=== PATIENT | male | born 1950 | race Caucasian/White ===

== ENCOUNTER 2018-08-05 15:13 | Outpatient (CLI) | payer MEDICARE, OTHER, SELFPAY ==
--- NOTE | 2018-08-05 11:09 | DI.COMBO_ITS ---
SYMPTOM/DIAGNOSIS: COUGH, R05 PA AND LATERAL CHEST: The cardiac and mediastinal contours have a normal appearance. The lungs are well inflated and clear. No infiltrate or effusion is seen. There are multiple old left rib fractures. IMPRESSION: No acute abnormality.
== END 2018-08-05 15:33 ==
PROVIDERS: PCP Nurse Practitioner; Visit Provider Nurse Practitioner
DX: R05 Cough (principal)
CPT/HCPCS: 71046

== ENCOUNTER 2018-09-05 10:53 | Outpatient (REF) | payer MEDICARE, OTHER, SELFPAY | END 2018-09-05 11:13 | LOC: LBN 10:53 | PROVIDERS: PCP Nurse Practitioner; Visit Provider Nurse Practitioner | DX: J02.9 Acute pharyngitis, unspecified (principal) | CPT/HCPCS: 87070 ==

== ENCOUNTER 2018-09-05 11:27 | Outpatient (CLI) | payer MEDICARE, OTHER, SELFPAY ==
[2018-09-05 11:47] LABS: Abs Immature Grans 0.02 k/cumm (0.0-0.09); Absolute Basophil Count 0.03 k/cumm (0.0-0.2); Absolute Eosinophil Count 0.29 k/cumm (0.0-0.7); Absolute Lymphocyte Count 1.11 k/cumm (1.2-3.4); Absolute Monocyte Count 0.62 k/cumm (0.11-0.7); Absolute Neutrophil Count 5.57 k/cumm (1.2-6.7); Basophils % 0.4; Eosinophils % 3.8; HCT 44.8 % (40.0-50.0); HGB 14.9 g/dL (13.5-17.5); Immature Grans % 0.3; Lymphocytes % 14.5; Mean Corp. HGB Concentration 33.3 g/dL (32.0-36.0); Mean Corpuscular Hemoglobin 29.9 pg (27.0-33.0); Mean Platelet Volume 8.8 fL (8.0-11.0); Monocytes % 8.1; Neutrophils % 72.9; Platelet Count 241 x1000/uL (130-400); RBC 4.98 m/cumm (4.50-6.00); White Blood Cell Count 7.64 k/cumm (4.4-10.8)
== END 2018-09-05 11:47 ==
PROVIDERS: PCP Nurse Practitioner; Visit Provider Nurse Practitioner
DX: I10 Essential (primary) hypertension (principal); E78.5 Hyperlipidemia, unspecified
CPT/HCPCS: 36415; 80053; 80061; 83721; 85025

== ENCOUNTER 2018-09-12 09:30 | Outpatient (CLI) | payer MEDICARE, OTHER, SELFPAY ==
--- NOTE | 2018-09-12 09:28 | DI.RAD_ITS ---
SYMPTOM/DIAGNOSIS: RIGHT HIP: The patient is status post bilateral THR. Three projections of the right hip demonstrate the prosthesis in excellent position. Surrounding bone intact. No abnormality involving the left hip prosthesis or adjacent bone is seen on a single frontal projection.
== END 2018-09-12 09:50 ==
PROVIDERS: PCP Nurse Practitioner; Visit Provider Orthopaedic Surgery
DX: Z96.643 Presence of artificial hip joint, bilateral (principal); M25.551 Pain in right hip; Z47.1 Aftercare following joint replacement surgery; I10 Essential (primary) hypertension
CPT/HCPCS: 99213; 73502

== ENCOUNTER 2018-11-06 02:12 | Outpatient (CLI) | payer MEDICARE, OTHER, SELFPAY ==
[2018-11-06 10:45] LABS: ALT 34 U/L (12-78); AST 21 U/L (15-37); Alkaline Phosphatase 39 U/L (46-116); Anion Gap 6.8 mmol/L (3-11); BUN 23 mg/dL (7-18); Bilirubin, Total 0.5 mg/dL (0.2-1.0); CO2 29.2 mmol/L (21.0-32.0); CREATININE 0.98 mg/dL (0.70-1.30); Calcium 8.9 mg/dL (8.5-10.1); Chloride 106 mmol/L (98-107); Cholesterol 165 mg/dL (50-200); Glucose 100 mg/dL (70-100); HDL Cholesterol 40 mg/dL (40-60); LDL CHOLESTEROL 104 mg/dL (<100); Potassium 4.3 mmol/L (3.5-5.1); Sodium 142 mmol/L (136-145); Total Protein 6.7 g/dL (6.4-8.2); Triglyceride 96 mg/dL (30-150)
[2018-11-07 10:45] LABS: PSA, Screening 0.7 ng/ml (0-4.5)
== END 2018-11-06 02:32 ==
PROVIDERS: PCP Nurse Practitioner; Visit Provider Nurse Practitioner
DX: I10 Essential (primary) hypertension (principal); Z12.5 Encounter for screening for malignant neoplasm of prostate
CPT/HCPCS: 36415; 80053; 80061; 83721; 84153

== ENCOUNTER 2019-04-14 14:31 | Outpatient (CLI) | payer MEDICARE, OTHER, SELFPAY ==
[2019-04-14 16:39] LABS: TSH (W/Ref FT4) 0.64 uIU/mL (0.358-3.74); Vitamin B12 314 pg/mL (193-986)
[2019-04-15 10:56] LABS: SS-B (La) Ab, IgG 2.1 Units (<20)
== END 2019-04-14 14:51 ==
PROVIDERS: PCP Nurse Practitioner; Visit Provider Otolaryngology Otolaryngology/Facial Plastic Surgery
DX: R43.2 Parageusia (principal); J34.89 Other specified disorders of nose and nasal sinuses; I10 Essential (primary) hypertension
CPT/HCPCS: 36415; 82607; 84443; 86235

== ENCOUNTER → 2019-06-04 08:42 | Outpatient (BNVA) | payer MEDICARE, OTHER, SELFPAY | PROVIDERS: PCP Nurse Practitioner; Referring Provider Nurse Practitioner; Visit Provider Orthopaedic Surgery | DX: M25.521 Pain in right elbow (principal); Z87.39 Personal history of other diseases of the musculoskeletal system and connective tissue | CPT/HCPCS: 99213; 99214 ==

== ENCOUNTER 2019-08-22 08:05 | Outpatient (CLI) | payer MEDICARE, OTHER, SELFPAY ==
[2019-08-22 08:42] LABS: HCT 45.1 % (40.0-50.0); HGB 15.1 g/dL (13.5-17.5); Mean Corp. HGB Concentration 33.5 g/dL (32.0-36.0); Mean Corpuscular Hemoglobin 30.8 pg (27.0-33.0); Mean Corpuscular Volume 91.9 fL (80-95); Platelet Count 240 x1000/uL (130-400); RBC 4.91 m/cumm (4.50-6.00); RBC Distribution Width 14.1 % (11.8-14.1); White Blood Cell Count 7.38 k/cumm (4.4-10.8)
[2019-08-22 09:12] LABS: Hemoglobin A1C 5.2 % (4.5-6.2)
[2019-08-22 09:59] LABS: ALT 35 U/L (16-63); AST 13 U/L (15-37); Alkaline Phosphatase 41 U/L (46-116); Anion Gap 8.3 mmol/L (3-11); BUN 27 mg/dL (7-18); Bilirubin, Total 0.7 mg/dL (0.2-1.0); CO2 26.7 mmol/L (21.0-32.0); CREATININE 0.93 mg/dL (0.70-1.30); Calcium 8.8 mg/dL (8.5-10.1); Calculated LDL 102 mg/dL; Chloride 107 mmol/L (98-107); Cholesterol 157 mg/dL (50-200); Glucose 97 mg/dL (70-100); HDL Cholesterol 44 mg/dL (40-60); Potassium 4.1 mmol/L (3.5-5.1); Sodium 142 mmol/L (136-145); TSH (W/Ref FT4) 0.57 uIU/mL (0.36-3.74); Total Protein 6.8 g/dL (6.4-8.2); Triglyceride 57 mg/dL (30-150)
== END 2019-08-22 08:25 ==
PROVIDERS: PCP Nurse Practitioner; Visit Provider Nurse Practitioner
DX: E78.00 Pure hypercholesterolemia, unspecified (principal); I10 Essential (primary) hypertension; R63.4 Abnormal weight loss; E11.9 Type 2 diabetes mellitus without complications; Z83.3 Family history of diabetes mellitus
CPT/HCPCS: 36415; 80053; 80061; 85027; 83036; 84443

== ENCOUNTER 2019-09-17 10:29 | Outpatient (CLI) | payer MEDICARE, OTHER, SELFPAY ==
--- NOTE | 2019-09-17 09:42 | DI.RAD_ITS ---
EXAM: XR LUMBAR SPINE AP, LAT INDICATION: pain. COMPARISON: No exams were available for comparison TECHNIQUE: 2D digital imaging was performed. FINDINGS: A moderate levorotoscoliotic deformity and narrowed vacuum discs are identified at L2-3, L3-4 and L5- S1. There is discogenic sclerosis and hypertrophic spurring. The pedicle, spinous and transverse pro cesses appear intact. Facet joint DJD is demonstrated. There is no evidence of spondylolysis or spo ndylolisthesis. The sacrum and sacroiliac joints are intact. Incidental note is made of bilateral h ip prostheses. IMPRESSION: Degenerative changes involving a dextrorotoscoliotic lumbar spine are demonstrated as described bethany field
--- NOTE | 2019-09-17 09:42 | DI.RAD_ITS ---
EXAM: XR THORACOLUMB JUNCT 2V INDICATION: pain. COMPARISON: XR LUMBAR SPINE AP, LAT from 09/17/2019 TECHNIQUE: 2D digital imaging was performed. FINDINGS: Images of the dorsolumbar junction were obtained. There is a mild lower dorsal levorotoscoliosis. M ultilevel disc space narrowing is identified in the mid and lower dorsal spine and there are moderate hypertrophic bony changes. There is no evidence of an abnormality involving the posterior elements with nothing to suggest a fracture or subluxation. IMPRESSION: There are degenerative changes involving the mid and lower dorsal spine and dorsolumbar junction as described above.
== END 2019-09-17 10:49 ==
PROVIDERS: PCP Nurse Practitioner; Visit Provider Orthopaedic Surgery
DX: M54.5 Low back pain (principal); M47.815 Spondylosis without myelopathy or radiculopathy, thoracolumbar region; M54.6 Pain in thoracic spine
CPT/HCPCS: 99214; 72080; 72100

== ENCOUNTER 2019-10-08 07:21 | Outpatient (CLI) | payer MEDICARE, OTHER, SELFPAY ==
--- NOTE | 2019-10-08 13:18 | DI.CT_ITS ---
EXAM: CT THORACIC SPINE WO CLINICAL HISTORY: Back pain, DORSALGIA, M54.9 TECHNIQUE: WO CONTRAST COMPARISON: XR CHEST 2V PA LATERAL from 08/05/2018 FINDINGS: No acute fracture or subluxation in the thoracic spine is present. Moderate degenerative changes are present throughout the thoracic spine. No significant central spinal canal stenosis is present. No suspicious lytic or sclerotic lesions are seen in the bones. There is a 4.9 centimeter hypodense lesion in the superior pole of the left kidney, likely reflecting a cyst. There is a 1.5 centimeter exophytic hypodense lesion at the anterior aspect of the midpole of the left kidney, which may also represent a cyst. These may be further evaluated with a renal ult rasound. IMPRESSION: 1. No acute abnormality in the thoracic spine. 2. Degenerative changes of the thoracic spine. 3. Left renal lesions. These likely reflects cysts. Correlation with renal ultrasound is recommende melissa
== END 2019-10-08 07:41 ==
PROVIDERS: PCP Nurse Practitioner; Visit Provider Nurse Practitioner
DX: M54.6 Pain in thoracic spine (principal); M47.814 Spondylosis without myelopathy or radiculopathy, thoracic region; N28.89 Other specified disorders of kidney and ureter
CPT/HCPCS: 72128

== ENCOUNTER 2019-10-10 01:21 | Outpatient (CLI) | payer MEDICARE, OTHER, SELFPAY ==
--- NOTE | 2019-10-10 15:08 | DI.US_ITS ---
EXAM: US RENAL CLINICAL HISTORY: ? cyst renal on CT, R93.89 ABNORMAL FINDINGS TECHNIQUE: Ultrasound performed using standard protocol. COMPARISON: CT THORACIC SPINE WO from 10/08/2019 FINDINGS: Right kidney measures 11.0 cm in length. The left kidney measures 12.0 cm in length. There is parag l parenchymal thickness and echogenicity. No renal calculi or hydronephrosis is seen. There is a cy st at the upper pole of the left kidney measuring 4.7 cm in greatest dimension. The smaller cyst see n anteriorly on the left kidney in the midportion was not identified by ultrasound. It has the typica l appearance of a simple cyst by CT. The prevoid bladder volume measured 278 cc. There is an 8 cc p ostvoid residual. Both ureteral jets were visualized. No bladder masses or calcifications are seen. The prostate is enlarged with a volume of 110 cc. IMPRESSION: 4.7 centimeter simple-appearing cyst at the upper pole of the left kidney. Enlarged prostate.
== END 2019-10-10 01:41 ==
PROVIDERS: PCP Nurse Practitioner; Visit Provider Nurse Practitioner
DX: N28.1 Cyst of kidney, acquired (principal); N40.0 Benign prostatic hyperplasia without lower urinary tract symptoms; R93.89 Abnormal findings on diagnostic imaging of other specified body structures
CPT/HCPCS: 76770

== ENCOUNTER 2019-11-07 12:18 | Outpatient (CLI) | payer MEDICARE, OTHER, SELFPAY ==
[2019-11-10 09:48] LABS: PSA, Screening 0.8 ng/mL (0.0-4.5)
== END 2019-11-07 12:38 ==
PROVIDERS: PCP Nurse Practitioner; Visit Provider Nurse Practitioner
DX: N40.0 Benign prostatic hyperplasia without lower urinary tract symptoms (principal); Z12.5 Encounter for screening for malignant neoplasm of prostate
CPT/HCPCS: 36415; 84153

== ENCOUNTER 2019-12-18 11:54 | Outpatient (REF) | payer MEDICARE, OTHER, SELFPAY ==
[2019-12-23 15:38] LABS: Misc Referral (MAYO) See Comments
== END 2019-12-18 12:14 ==
LOC: LBO 11:54
PROVIDERS: PCP Nurse Practitioner; Visit Provider Internal Medicine
DX: G60.9 Hereditary and idiopathic neuropathy, unspecified (principal)
CPT/HCPCS: 82175; 82300; 83655; 83825; 81050

== ENCOUNTER 2020-06-11 13:09 | Outpatient (CLI) | payer MEDICARE, OTHER, SELFPAY ==
--- NOTE | 2020-06-11 14:27 | DI.RAD_ITS ---
EXAM: XR FOOT RT LIMITED CLINICAL HISTORY: FOOT PAIN, ? METATARSALGIA TECHNIQUE: COMPARISON: No exams were available for comparison FINDINGS: Two views were obtained. There are mild degenerative changes involving the joints of the midfoot and the IP joints. Minimal osteophyte formation noted on the calcaneus at the plantar fascia and Achill es attachments. IMPRESSION: Mild degenerative changes as described above.
--- NOTE | 2020-06-11 14:30 | DI.RAD_ITS ---
EXAM: XR FOOT LT LIMITED CLINICAL HISTORY: FOOT PAIN, ? METATARSALGIA TECHNIQUE: COMPARISON: CR XR FOOT RT LIMITED from 06/11/2020 FINDINGS: Two views were obtained. There are mild degenerative changes of the IP joints and of the joints of t he midfoot. There are severe degenerative changes at the tibiotalar joint with very prominent hypert rophic changes noted. Moderate sub talar arthritis also noted. IMPRESSION: Degenerative changes as described above, most marked involving tibiotalar joint.
== END 2020-06-11 13:29 ==
PROVIDERS: PCP Nurse Practitioner; Visit Provider Internal Medicine
DX: M19.071 Primary osteoarthritis, right ankle and foot (principal); M19.072 Primary osteoarthritis, left ankle and foot; M25.774 Osteophyte, right foot
CPT/HCPCS: 73620

== ENCOUNTER 2020-07-08 01:01 | Outpatient (CLI) | payer MEDICARE, OTHER, SELFPAY ==
--- NOTE | 2020-07-08 | DI.MRI_ITS ---
EXAM: MR LOWER EXTREMITY RT WO/W CLINICAL HISTORY: RT FOOT PAIN,M79.671, ARTHRITIS. TECHNIQUE: Multiplanar multisequence MRI was performed. COMPARISON: CR XR FOOT RT LIMITED from 06/11/2020 FINDINGS: Bones: No evidence of fracture or contusion. Marrow signal is within normal limits. Joints: Mild degenerative changes are seen at the articulation between the sesamoids and the head of the 1st metatarsal. Muscles: Unremarkable. Tendons and ligaments: Unremarkable. Enhancement: No suspicious enhancement is identified. Soft tissues: No soft tissue mass or focal fluid collection is identified. IMPRESSION: 1. No evidence of a soft tissue mass or enhancing lesion. 2. No evidence of an occult fracture or osteomyelitis. DATA REPOSITORY:
[2020-07-08 14:00] LABS: CREATININE 0.93 mg/dL (0.70-1.30)
[2020-07-08] MEDS: Normal Saline Flush 10 ML SYR IVP (14:03)
[2020-07-08] MEDS: Gadoterate meglumine 20 ML VIAL 18 ML IVP (14:04)
== END 2020-07-08 01:21 ==
PROVIDERS: PCP Nurse Practitioner; Visit Provider Internal Medicine
DX: M79.671 Pain in right foot (principal)
CPT/HCPCS: 80053; 80061; 73720; 82565

== ENCOUNTER 2020-11-04 05:09 | Outpatient (CLI) | payer MEDICARE, SELFPAY ==
[2020-11-04 09:34] LABS: Hemoglobin A1C 5.1 % (<5.7)
[2020-11-04 10:29] LABS: ALT 41 U/L (16-63); AST 24 U/L (15-37); Alkaline Phosphatase 38 U/L (46-116); Anion Gap 10.3 mmol/L (3-11); BUN 25 mg/dL (7-18); Bilirubin, Total 0.5 mg/dL (0.2-1.0); CO2 25.7 mmol/L (21.0-32.0); CREATININE 1.06 mg/dL (0.70-1.30); Calcium 8.8 mg/dL (8.5-10.1); Calculated LDL 102 mg/dL (<100); Chloride 106 mmol/L (98-107); Cholesterol 155 mg/dL (<200); Glucose 95 mg/dL (74-106); HDL Cholesterol 36 mg/dL (40-60); Potassium 4.3 mmol/L (3.5-5.1); Sodium 142 mmol/L (136-145); Total Protein 6.9 g/dL (6.4-8.2); Triglyceride 86 mg/dL (<150)
== END 2020-11-04 05:29 ==
PROVIDERS: PCP Nurse Practitioner; Visit Provider Nurse Practitioner
DX: E78.00 Pure hypercholesterolemia, unspecified (principal); I10 Essential (primary) hypertension; E11.9 Type 2 diabetes mellitus without complications
CPT/HCPCS: 36415; 80053; 80061; 83036

== ENCOUNTER 2020-11-16 02:02 | Outpatient (CLI) | payer MEDICARE, SELFPAY ==
[2020-11-16 22:00] LABS: PSA, Screening 0.7 ng/mL (0.0-6.5)
== END 2020-11-16 02:22 ==
PROVIDERS: PCP Nurse Practitioner; Visit Provider Nurse Practitioner
DX: N40.0 Benign prostatic hyperplasia without lower urinary tract symptoms (principal); Z12.5 Encounter for screening for malignant neoplasm of prostate
CPT/HCPCS: 36415; 84153

== ENCOUNTER 2021-01-19 01:06 | Outpatient (CLI) | payer MEDICARE, SELFPAY ==
--- NOTE | 2021-01-19 09:35 | DI.MRI_ITS ---
EXAM: MR LUMBAR SPINE WO CLINICAL HISTORY: CHRONIC LUMBAR RADICULOPATHY,M54.16. TECHNIQUE: Multiplanar multisequence MRI of the Lumbar spine was performed. COMPARISON: CR XR THORACOLUMB JUNCT 2V from 09/17/2019 CR XR LUMBAR SPINE AP, LAT from 09/17/2019 FINDINGS: Plain films 09/17/2019 reveal what appears to be partial sacralization of the L5 segment and there is degenerative scoliosis convex right having epicenter at L2 and L3 levels. There also bilateral hip prostheses noted. MRI findings: Incidentally noted is a partially included probable cyst in the left kidney. Conus medullaris is at normal level. There is no evidence of conus mass nor subjacent clumping of in trathecal nerve roots to suggest arachnoiditis. The distal thecal sac appears unremarkable.There is no evidence of Tarlov intrasacral cysts nor other significant findings within the sacral canal Bones:There are no fractures nor ominous osseous lesions in the lumbar vertebral bodies and visualize d sacrum. With respect to the individual levels... T12-L1: Disc space narrowing. No significant disc herniation. Central canal dimensions within parag l limits. No tight foraminal stenosis L1-2: Normal disc height and signal. Mild annular bulging without a prominent disc herniation. Centr al canal dimensions are within normal limits.No foraminal stenosis. Mild facet arthropathy. L2-3: There is advanced disc space narrowing which is most prominent on the left side of this disc sp penny where there are also bridging osteophytes between the L 2 and L3 vertebral bodies. Posteriorly t here is some annular bulging and posterior osteophytic ridging. Mild central spinal canal stenosis.T here is severe left-sided foraminal stenosis due to the disc height loss and degenerative change in f acet joint. On the right side of this disc space there is no significant foraminal stenosis due to t he more prominent disc height. There are Modic type 1 sub endplate marrow edema changes at this leve l. L3-4: This level also exhibits advanced disc height loss, also more severe on the left side where the re are Modic type 2 sub endplate fatty marrow changes and left-sided osteophytes also evident at this level. There is annular bulging at this level with a superimposed posterolateral right disc protrusion which extends posteriorly 4 millimeters and extends into the floor of the exiting right neural foramen wit h mild foraminal stenosis. There is severe central spinal canal stenosis due to the annular bulging and short AP dimensions of the pedicles and degenerative facet arthropathy. The there is also severe narrowing of the exiting left neural foramen due to the advanced disc height loss and degenerative c hanges in the facet joints. L4-5: There is disc space narrowing at this level which is more prominent on the right side and there lateral right-sided osteophytes at this level evident. There is diffuse mild annular bulging withou t a dominant disc herniation. Central canal dimensions are lower normal. There is, however, severe foraminal stenosis on the right side, this vertical foraminal stenosis related to the advanced disc h eight loss on the right side at this level as well as to generative changes in the ipsilateral facet joint. There is minimal foraminal stenosis on the opposite-left side, this because of the preserved disc height on the left side of this disc space. L5-S1: There is anterolisthesis of L5 upon S1 at this level which results in increased AP dimension o f the central canal and appears to be related to pars interarticularis defects bilaterally at this le bony. There is approximately 1 cm anterior slippage of L5 upon S1. There is significant bilateral fo raminal stenosis, slightly more so on the right side. The exiting nerve root is impinged between the overlying right pedicle of L5 and subjacent pseudo herniation of the annulus. Lesser amount of left -sided foraminal stenosis is noted because of less disc height loss on the left side of this disc spa ce. There are only mild degenerative changes in the facet joints at this level. Soft tissues: There is atrophy of the right psoas muscle. There is no atrophy of the left psoas mus dasia. However, there is artifact in left side of the pelvis noted at the level of the iliac bone. IMPRESSION: 1. Multilevel advanced chronic degenerative disc disease and degenerative scoliosis. Findings as moon cribed for individual level above. 2. There is severe multilevel asymmetric vertical foraminal stenosis as described above. The asymmet ry in foraminal stenosis is related to the difference in height loss of the disc space on the right a nd left sides of each disc space. 3. There is severe central spinal canal stenosis evident at L3-4 level as described. 4. There are pars defects at L5 level with anterolisthesis of L5 upon S1. Carries a lateral recesse s forward and there is resultant foraminal stenosis, more prominent on the right side, as described a juan jose. This is also related to the differential height loss of the disc space left versus right at th is level. 5. There are Modic type 1 marrow edema changes evident at L2-3 level and Modic type 2 sub endplate f atty marrow changes at L3-4 level and L4-5 level. 6. There is advanced unilateral atrophy of the right psoas muscle. Incidentally noted is a mass in the superior aspect of the left kidney which is partially included in the field of view here and is p robably a cyst. This should be verified with ultrasound. DATA REPOSITORY:
== END 2021-01-19 01:07 ==
LOC: DI 01:07
PROVIDERS: PCP Nurse Practitioner; Visit Provider Internal Medicine
DX: M54.16 Radiculopathy, lumbar region (principal); M51.17 Intervertebral disc disorders with radiculopathy, lumbosacral region
CPT/HCPCS: 72148

== ENCOUNTER → 2021-02-07 14:01 | Outpatient (BNVA) | payer MEDICARE, SELFPAY | PROVIDERS: PCP Nurse Practitioner; Referring Provider Nurse Practitioner; Visit Provider Student in an Organized Health Care Education/Training Program | DX: G56.01 Carpal tunnel syndrome, right upper limb (principal); G56.02 Carpal tunnel syndrome, left upper limb | CPT/HCPCS: 99213 ==

== ENCOUNTER 2021-03-28 02:11 | Outpatient (CLI) | payer MEDICARE, SELFPAY ==
[2021-03-28 12:00] LABS: Source Nasal/Nares
[2021-03-28 19:27] LABS: COVID-19 PCR Negative (Negative)
== END 2021-03-28 02:12 | disposition home or self-care (01) ==
LOC: LBO 02:11
PROVIDERS: PCP Nurse Practitioner; Visit Provider Student in an Organized Health Care Education/Training Program
DX: Z20.822 Contact with and (suspected) exposure to COVID-19 (principal); Z01.818 Encounter for other preprocedural examination
CPT/HCPCS: 87635

== ENCOUNTER 2021-03-29 08:03 | Day surgery (SDC) | payer MEDICARE, SELFPAY ==
--- NOTE | 2021-03-29 07:40 | PDOC.DSDIS_ITS ---
Discharge Plan Disposition Patient Disposition: HOME Condition: Good Discharge Details Attending Provider: Juan Pablo Wilkins Primary Care Provider: Shoshana Randolph Home Meds and New Rx's Prescriptions: New hydrocodone-acetaminophen 5-325 mg tablet 1 tab PO Q6H PRNQty: 5 RF: 0 acetaminophen [Tylenol Extra Strength] 500 mg tablet 500 mg PO Q6H PRNQty: 90 RF: 0 Continued acetaminophen 650 mg tablet extended release 1,300 mg PO BID PRNRF: 0 atorvastatin [Lipitor] 10 mg tablet 10 mg PO DAILY Qty: 90 RF: 3 losartan 50 mg tablet 50 mg PO DAILY Qty: 90 RF: 3 calcium carbonate [Antacid (calcium carbonate)] 200 MG tablet,chewable 200 mg PO DAILY RF: 0 gabapentin 300 mg capsule 100 mg PO QHS RF: 0 ibuprofen 800 mg tablet 800 mg PO TID PRN (Reason: pain) Qty: 90 RF: 3 Discharge Instructions Stand Alone Forms: Franky Boyd Tunnel Release Referrals: Juan Pablo Wilkins MD [ [facility] STAFF PHYSICIAN] - Activity:: Activity as Tolerated Remove Dressings/Wound Care:: 72 hours Shower/Bathe:: 72 hours Diet:: As Tolerated Discharge Orders Discharge Orders: Discharge Order (Routine); Ordered 03/29/21 Ordered By: Mena Chau DS: Diagnosis Discharge Diagnosis (1) Left carpal tunnel syndrome: Status: Acute (2) Right carpal tunnel syndrome: Status: Acute
[2021-03-29 08:10] VITALS: BP 149/86; PULSE 65; RESP 16; TEMP 36; O2SAT 98
--- NOTE | 2021-03-29 08:29 | W.ANESPRE ---
General Info Date of Service Date Performed: 03/29/21 Height: 5 ft 5 in Weight: 88.904 kg Body Mass Index (BMI): 32.5 Surgical Procedure: Operation Date: 03/29/21 09:55 Proposed Procedures Side Surgeon p Wrist ECTR Bilateral Juan Pablo Wilkins MD Meds Allergies and Home Medications Allergies Allergy/AdvReac Type Severity Reaction Status Date / Time benzoin Allergy Intermediate itchy, Verified 03/29/21 08:17 scratchy, redness that stayed Home Medication Medication Instructions Recorded calcium carbonate [Antacid 200 mg PO DAILY tab.chew 10/25/17 (calcium carbonate)] acetaminophen 650 mg 1,300 mg PO BID PRN tab 11/08/20 tablet,extended release atorvastatin 10 mg tablet 10 mg PO DAILY #90 tab-cap 11/08/20 losartan 50 mg tablet 50 mg PO DAILY #90 tab-cap 11/08/20 gabapentin 300 mg capsule 100 mg PO QHS cap 02/07/21 ibuprofen 800 mg tablet 800 mg PO TID PRN #90 tab-cap 03/24/21 acetaminophen [Tylenol Extra 500 mg PO Q6H PRN #90 tab 03/29/21 Strength] hydrocodone-acetaminophen 1 tab PO Q6H PRN #5 tab 03/29/21 Current Visit Medications: Current Medications Generic Name Dose Route Start Last Admin Trade Name Freq PRN Reason Stop Dose Admin Acetaminophen 650 mg 03/29/21 07:39 Acetaminophen 325 Mg Tab PO Q4H PRN PRN Hydrocodone Bitart/Acetaminophen 0 tab 03/29/21 07:39 Hydrocodone 5/Acetaminophen 325 Tab PO Q3H PRN PRN Pain Ringer's Solution 1,000 mls @ 80 mls/hr 03/29/21 06:00 IV 04/27/21 23:59 INFUSION SANDOR Cefazolin Sodium/Dextrose 2 gm in 50 mls @ 100 mls/hr 03/29/21 06:00 Ancef Duplex IVPB 03/29/21 23:59 PREOP SANDOR Ondansetron HCl 4 mg/ Sodium 52 mls @ 200 mls/hr 03/29/21 07:39 Chloride IVPB Q6H PRN PRN IV Miscellaneous Supplies 1 each 03/29/21 06:00 Iv Access IV 04/27/21 23:59 DIRECTED SANDOR Sodium Chloride 0 ml 03/29/21 06:00 Normal Saline Flush 10 Ml Syr IV 04/27/21 23:59 PRN PRN Sodium Chloride 0 ml 03/29/21 06:00 Normal Saline 10 Ml Vial IJ 04/27/21 23:59 DIRECTED PRN Sterile Water 0 ml 03/29/21 06:00 Water,Injection,Sterile 10 Ml Vial IJ 04/27/21 23:59 DIRECTED PRN PFSH Active Problems Active Problems: Problem Status Onset Code Spinal stenosis M48.00 DDD (degenerative disc disease) Lumbar radiculopathy M54.16 Left carpal tunnel syndrome G56.02 Right carpal tunnel syndrome G56.01 Parageusia R43.2 BPH (benign prostatic hyperplasia) N40.0 Urinary hesitancy R39.11 History of fracture Z87.81 Elevated glucose R73.09 Polyneuropathy G62.9 Medicare annual wellness visit, subsequent Z00.00 Back pain M54.9 Hand pain M79.643 Right sided sciatica M54.31 Loss of taste R43.2 Elevated cholesterol E78.00 History of right lateral epicondylitis Z87.39 Post-nasal drip R09.82 H/O total hip arthroplasty 07/30/13 Z96.649 Tubular adenoma 10/25/15 D36.9 Tear of left rotator cuff 08/31/15 M75.102 Spinal stenosis, unspecified region other than cervical 10/25/15 M48.00 Hypertension 05/03/15 I10 Carpal tunnel syndrome 01/21/14 G56.00 Medical History Medical History Back pain Benign hypertension pt is not on medication, and stated may speak with primary care concerning this.HE BPH (benign prostatic hyperplasia) Chest pressure (10/30/14) negative stress test 09/2014 Elevated cholesterol Impingement syndrome of right shoulder repaired 08/15/20-Dr Man Loss of taste Spontaneous rupture of extensor tendons, right shoulder Subacromial impingement of right shoulder Tongue pain 10/07/18 ENT (Alec Luna PA-C) Unspecified rotator cuff tear or rupture of right shoulder, not specified as traumatic repair 08/15/20-Dr Man Surgical History Surgical History Arthrotomy (08/22/06) left ankle with excision of osteophytes (debridement of ankle joint) colonoscopy 2004,07/02/09, 08/09/10, 10/31/13, 12/19/16 diverticulitis resection (04/05/06) Excision, of Osteophytes (03/18/01) from the anterior distal tibia and from the talus left ankle. Hx of shoulder surgery (08/15/20) Rotator Cuff Repair, FELIX-Dr Man 11/23/[address] Man, with f/u in 6w - R roatator cuff syndrome Rotator Cuff Repair (09/27/15) Left Total hip (07/01/07) Right Total replacement of hip (08/24/08) left Tobacco Smoking/Tobacco Use Status: Former Tobacco Use Alcohol Alcohol Intake: current Alcohol intake frequency: a few times a week Alcohol type: beer and wine Substance Use Substance use: Never Substance use type: does not use Vital Signs and Lab Results Vital Signs Most Recent Vital Signs in EMR: Most Recent Vital Signs Temp Pulse Resp BP Pulse Ox 36 C L 65 16 149/86 H 98 03/29/21 08:10 03/29/21 08:10 03/29/21 08:10 03/29/21 08:10 03/29/21 08:10 Lab Results Blood Type / Crossmatch: No Data to Display Complete Blood Count: White Blood Count 7.38 k/cumm (4.4-10.8) 08/22/19 08:20 08/22/19 Red Blood Count 4.91 m/cumm (4.50-6.00) 08/22/19 08:20 08/22/19 Hemoglobin 15.1 g/dL (13.5-17.5) 08/22/19 08:20 08/22/19 Hematocrit 45.1 % (40.0-50.0) 08/22/19 08:20 08/22/19 Platelet Count 240 x1000/uL (130-400) 08/22/19 08:20 08/22/19 Complete Metabolic Panel: Sodium Level 142 mmol/L (136-145) 11/04/20 09:07 11/04/20 Potassium Level 4.3 mmol/L (3.5-5.1) 11/04/20 09:07 11/04/20 Chloride Level 106 mmol/L (98-107) 11/04/20 09:07 11/04/20 Carbon Dioxide Level 25.7 mmol/L (21.0-32.0) 11/04/20 09:07 11/04/20 Blood Urea Nitrogen 25 mg/dL (7-18) H 11/04/20 09:07 11/04/20 Creatinine 1.06 mg/dL (0.70-1.30) 11/04/20 09:07 11/04/20 Calcium Level 8.8 mg/dL (8.5-10.1) 11/04/20 09:07 11/04/20 Albumin 4.0 g/dL (3.4-5.0) 11/04/20 09:07 11/04/20 Glucose Level 95 mg/dL (74-106) 11/04/20 09:07 11/04/20 Hemoglobin A1c 5.1 % (<5.7) 11/04/20 09:07 11/04/20 Liver Function Panel: Alanine Aminotransferase (ALT/SGPT) 41 U/L (16-63) 11/04/20 09:07 11/04/20 Aspartate Amino Transf (AST/SGOT) 24 U/L (15-37) 11/04/20 09:07 11/04/20 Coagulation Panel: No Data to Display Cardiac Panel: No Data to Display Arterial Blood Gas: No Data to Display Venous Blood Gas: No Data to Display Pancreas Panel: No Data to Display Thyroid Panel: Thyroid Stimulating Hormone (TSH) 0.57 uIU/mL (0.36-3.74) 08/22/19 08:20 08/22/19 Infectious Disease: Coronavirus (COVID-19)(PCR) Negative (Negative) 03/28/21 11:14 03/28/21 Coronavirus 2019 Source Nasal/nares 03/28/21 11:14 03/28/21 Blood Cultures: No Data to Display Toxicology Panel: No Data to Display Imaging and Studies Imaging and Studies EKG Summary:: 08/10/20: Sinus rhythm...normal P axis, V-rate 60- 99 Anesthesia Assessment and Plan Anesthesia History Personal History: No History of Anesthesia Complications Family History: No Family History of Anesthesia Complications Exercise Tolerance Exercise Tolerance: Metabolic Equivalents<4 Pertinent Negatives Pertinent Negatives: No Symptoms of GERD, No Major Cardiovascular Symptoms or Complaints, No Major Pulmonary Symptoms or Complaints (Snores) and No History of CVA/TIA Cardiac & Pulmonary Exam Cardiac Exam: Normal S1/S2 Heart Sounds Pulmonary Exam: Clear Bilateral Breath Sounds Airway Exam Known Difficult Airway: No Mallampati Class: 1 Mouth Opening: Normal (> 3cm) Thyromental Distance: Greater than 3 cm Neck Range of Motion: Full ROM Neck Circumference: Normal Teeth Condition: Loose or Chipped Tooth Numberin. Chipped ASA Classification ASA Score: ASA 2 ASA Emergency: No NPO Status NPO Status: NPO Clears >2 hours, Solids >8 hours Anesthesia Plan Anesthesia Technique: General Anesthesia Airway Planned: Natural Airway Monitors Used: Standard Monitors
[2021-03-29] MEDS: Lactated Ringers 1,000 ML 80 ML IV (08:42)
[2021-03-29 09:05] VITALS: BMI 32.5
[2021-03-29] MEDS: ceFAZolin 2 GM/50 ML BAG IVPB (09:24)
[2021-03-29] MEDS: Sodium Bicarbonate 50 MEQ/50 ML VIAL (09:35)
[2021-03-29 09:57] VITALS: BP 113/61; PULSE 66; RESP 18; TEMP 36.2; O2SAT 95
--- NOTE | 2021-03-29 09:59 | W.ANESPOSTOP ---
Postoperative Evaluation Date, Time and Location Date Performed: 03/29/21 Time Performed: 09:59 Patient Location: Day Surgery Unit Vital Signs Most Recent Imported Vital Signs: Most Recent Vital Signs Temp Pulse Resp BP Pulse Ox 36 C L 65 16 149/86 H 98 03/29/21 08:10 03/29/21 08:10 03/29/21 08:10 03/29/21 08:10 03/29/21 08:10 Most Recent Manually Entered Vital Signs: Adult Blood Pressure: 113/61 Heart Rate: 60 Respirations: 16 Oxygen Saturation (%): 95 Temperature (C): 36.2 C Pain Score (0-10 Scale): 0 Assessment Mental Status: Awake (Alert & Oriented to Patient Baseline) Airway and Respiratory Function: Patent airway with normal (patient baseline) respiratory exam Cardiovascular Function: Hemodynamically Stable Hydration Status: Adequately Hydrated Nausea & Vomiting: No Nausea or Vomiting Pain: Pt. Denies Any Pain Peripheral Nerve Block: Patient did not receive a nerve block
[2021-03-29 10:00] VITALS: BP 113/61; PULSE 60; RESP 16; TEMPC 36.2; O2SAT 95
--- NOTE | 2021-03-29 10:25 | ROE_ITS ---
Date of service: 03/29/21 Time of Service: 10:10 Operative Note Operative Note DATE OF PROCEDURE: 03/29/21 PRE-OP DIAGNOSIS: Bilateral Carpal Tunnel Syndrome POST-OP DIAGNOSIS: same PROCEDURE: Bilateral Endoscopic Carpal Tunnel Release SURGEON: Juan Pablo Wilkins ANESTHESIA TYPE: Spinal Refer to Anesthesia Record ESTIMATED BLOOD LOSS: 0 PATHOLOGY: none sent TOURNIQUET TIME: 10 COMPLICATIONS: None Patient was transported to: same day Patient's condition: stable Indications: I have seen Herbert in clinic for symptoms of carpal tunnel syndrome. The numbness, tingling, and pain limited function. Clinical exam findings with nerve conduction tests confirmed the diagnosis of carpal tunnel syndrome. Nonoperative measures such as bracing, time, activity modifications had been tried but disability and pain persisted. I discussed carpal tunnel release with the patient. I reviewed the risks of the procedure to include, but not limited to, bleeding, infection, pain, stiffness, incomplete release, damage to nerves or vessels, persistent numbness, recurrence. Despite these risks, the patient elected to proceed. Findings: There was tightened carpal tunnel of each hand. This was dilated and released successfully with the endoscopic with increased space within the tunn el. The antebrachial fascia was released proximally freeing the median nerve at the wrist. Procedure Description: Herbert was greeted in the preoperative holding area where the correct side was identified and marked. The consent was reviewed with the patient and signed. The history and physical was updated. All questions were answered. Herbert was taken back to the operating room. The patient was placed into the supine position on the operating room table with the both arms on an arm boards. A nonsterile tourniquet was placed high onto the left arm. The right arm had an IV so an Esmarch tourniquet would be used. All bony prominences were well padded. Prophylactic antibiotics in the form of Cefazolin were administered. Both arms were then prepped with Chloraprep and draped in a standard fashion with extremity drape. A timeout to confirm correct identity, side and site, procedure, allergies, anesthesia, and medical concerns was performed. The surgical site was marked in the volar wrist creases in line with the radial border of the fourth ray for both hands. This area was anesthetized with approximately 5cc of 1% Lidocaine with Epinephrine on both right and left hands. Then the left upper limb was exsanguinated with an Esmarch. The skin was incised with a 15 blade, approximately 1cm. The skin only was cut and the deeper tissue was dissected bluntly with a tenotomy scissor, avoiding passing nerve and venous structures. The fascia was penetrated and opened bluntly. A two-prong skin hook was placed under this proximal fascial edge. A series of hamate finders were used to identify and dilate the carpal tunnel. Synovial elevator was used to free synovial attachments to the underside of the transverse carpal ligament. My thumb was kept in the palm to smooth the distal extent of the carpal tunnel and correctly position the hand. The Microaire endoscope was inserted without difficulty and without resistance. Excellent visualization showed horizontally running fibers of the transverse carpal ligament (TCL). The distal extent of the TCL was visualized and the end of the scope palpated with the thumb. The blade was elevated and withdrawn from distal to proximal. The TCL was split into two flaps. The endoscope was reinserted to confirm complete release and any remnant ligament was incised. Th e scope was withdrawn and the proximal aspect of the carpal tunnel was grossly inspected and appeared release with the median nerve visible. The antebrachial fascia at the level of the wrist was then freed from the overlying skin and then the underlying median nerve with blunt dissection. This was transected longitudinally for about 3cm proximal to the wrist incision. The wound was then irrigated with easy flow of irrigant distally and proximally. The incision was closed with a single 4-0 Nylon suture. The wound was dressed with Xeroform, Gauze, and Kerlix. The tourniquet was deflated with the initial dressing and held with some pressure. Blood flow returned easily to all digits with capillary refill less than 2 seconds. Attention was then turned to the right hand. The limb was exsanguinated with an Esmarch and this was kept in place for a tourniquet for 5 minutes. The skin was incised with a 15 blade, approximately 1cm. The skin only was cut and the deeper tissue was dissected bluntly with a tenotomy scissor, avoiding passing nerve and venous structures. The fascia was penetrated and opened bluntly. A two-prong skin hook was placed under this proximal fascial edge. A series of hamate finders were used to identify and dilate the carpal tunnel. Synovial elevator was used to free synovial attachments to the underside of the transverse carpal ligament. My thumb was kept in the palm to smooth the distal extent of the carpal tunnel and correctly position the hand. The Microaire endoscope was inserted without difficulty and without resistance. Excellent visualization showed horizontally running fibers of the transverse carpal ligament (TCL). The distal extent of the TCL was visualized and the end of the scope palpated with the thumb. The blade was elevated and withdrawn from distal to proximal. The TCL was split into two flaps. The endoscope was reinserted to confirm complete release and any remnant ligament was incised. The scope was withdrawn and the proximal aspect of the carpal tunnel was grossly inspected and appeared release with the median nerve visible. The antebrachial fascia at the level of the wrist was then freed from the overlying skin and then the underlying median nerve with blunt dissection. This was transected longitudinally for about 3cm proximal to the wrist incision. The wound was then irrigated with easy flow of irrigant distally and proximally. The incision was closed with a single 4-0 Nylon suture. The wound was dressed with Xeroform, Gauze, Kerlix and Doug. The tourniquet was deflated with the i nitial dressing and held with some pressure. Blood flow returned easily to all digits with capillary refill less than 2 seconds. An DOUG wrap was applied to the left hand. The patient tolerated the procedure well and was returned to the Same Day Surgery area in a stable condition suffering no known complication.
[2021-03-29 10:30] VITALS: BP 118/67; PULSE 64; RESP 18; TEMP 36.2; O2SAT 96
== END 2021-03-29 10:55 | disposition home or self-care (01) ==
LOC: SUR 08:04
PROVIDERS: PCP Nurse Practitioner; Visit Provider Student in an Organized Health Care Education/Training Program
PROC: 01N54ZZ Release Median Nerve, Percutaneous Endoscopic Approach (ICD-10-PCS; CPT 29848; principal; 2021-03-29 09:45)
DX: G56.03 Carpal tunnel syndrome, bilateral upper limbs (principal); I10 Essential (primary) hypertension; N40.0 Benign prostatic hyperplasia without lower urinary tract symptoms; E78.00 Pure hypercholesterolemia, unspecified
CPT/HCPCS: 29848; J0690; J2001; J2704

== ENCOUNTER → 2021-04-07 08:37 | Outpatient (BNVA) | payer MEDICARE, SELFPAY | PROVIDERS: PCP Nurse Practitioner; Referring Provider Nurse Practitioner; Visit Provider Physician Assistant Surgical | DX: Z47.89 Encounter for other orthopedic aftercare (principal) ==

== ENCOUNTER → 2021-08-11 11:02 | Outpatient (BNVA) | payer MEDICARE, SELFPAY | PROVIDERS: PCP Nurse Practitioner; Referring Provider Nurse Practitioner; Visit Provider Nurse Practitioner Gerontology | DX: N40.0 Benign prostatic hyperplasia without lower urinary tract symptoms (principal); I10 Essential (primary) hypertension | CPT/HCPCS: 96402; 99215 ==

== ENCOUNTER 2021-08-11 19:45 | Outpatient (REF) | payer MEDICARE, SELFPAY | END 2021-08-11 19:46 | disposition home or self-care (01) | LOC: LBN 19:45 | PROVIDERS: PCP Nurse Practitioner; Visit Provider Nurse Practitioner Gerontology | DX: Z12.5 Encounter for screening for malignant neoplasm of prostate (principal); R39.11 Hesitancy of micturition | CPT/HCPCS: 84153 ==

== ENCOUNTER 2021-09-15 10:07 | Outpatient (CLI) | payer MEDICARE, SELFPAY ==
--- NOTE | 2021-09-15 10:00 | DI.RAD_ITS ---
Exam(s) XR ANKLE LT COMPLETE EXAM: XR ANKLE LT COMPLETE CLINICAL HISTORY: pain. TECHNIQUE: 2D digital imaging was performed. COMPARISON: CR LEFT ANKLE COMPLETE from 02/07/2018 FINDINGS: Again noted is severe degenerative change in the ankle-tibiotalar joint, similar to previous. Advanc ed joint space narrowing. Also loose intra-articular bodies. Somewhat serrated appearance of the sanchez rface of the talar dome. No prominent soft tissue swelling. Milder degenerative changes noted in th e subtalar joint and talonavicular and calcaneocuboid joints. Vascular calcification is noted in the posterior tibial artery indicating atherosclerotic involvement . IMPRESSION: Advanced degenerative changes in the ankle, similar to January 2018 DATA REPOSITORY: RADIATION DOSE DELIVERED:
== END 2021-09-15 10:08 | disposition home or self-care (01) ==
LOC: DIORS 10:08
PROVIDERS: PCP Nurse Practitioner; Referring Provider Nurse Practitioner; Visit Provider Student in an Organized Health Care Education/Training Program
DX: M19.072 Primary osteoarthritis, left ankle and foot (principal)
CPT/HCPCS: 99213; 73610

== ENCOUNTER 2021-11-10 00:40 | Outpatient (CLI) | payer MEDICARE, SELFPAY ==
--- NOTE | 2021-11-10 09:00 | ETT_ITS ---
APPROVED REPORT Exam: Exercise Treadmill Patient Location: Out-Patient Room/Bed: Stress Nurse: Tasia Mooney RN Ordering Provider:DENIS GUILLEN, Contact Number: [phone] BMI: 0 Baseline Rhythm: Sinus Rhythm Indications: CHEST PAIN Medical History Medical History: HTN, Elevated cholesterol, Spinal stenosis, DDD, Elevated glucose, Polyneuropathy Cardiac Medications: Losartan, Atorvastatin Allergies: Benzoin Cardiac Risk Factors: FHX of CAD, HTN, Hyperlipidemia, Smoking (former) Previous Cardiac Procedures: None Pretest Chest Pain Characteristics: Nonanginal chest pain (patient reports left sided chest pressure when he bends over, but quickly resolves once he is standing straigtht up) Exercise History: Sedentary Physical Disabilities: Right ankle Lung Sounds: Clear to auscultation Heart Sounds: Regular Stress Test Details Test: Exercise stress testing was performed using a Manoj protocol. Rest Stress HR Resting HR Supine: 67 bpm Max Heart Rate (APMHR): 149 bpm Resting HR Standin bpm Target HR (85% APMHR): 126 bpm Max HR Achieved: 141 bpm % of APMHR: 94 Recovery HR: 81 bpm HR response to stress: Normal HR response to stress BP Resting BP Supine: 124/62 mmHg Resting BP Standin/62 mmHg Max BP: 164/76 mmHg Recovery BP: 142/72 mmHg BP response to stress: Normal blood pressure response to stress. ECG Resting ECG: Sinus Rhythm Ectopy: None Stress ECG: Sinus Tachycardia ST Change: No significant ST segment changes noted Arrhythmia: occasional PVCs Recovery ECG: Sinus Rhythm Recovery ST Change: No significant ST segment changes noted Recovery Arrhythmia: PVCs, PACs Clinical Reason for Termination: Terminated by RN d/t concerns for patient safety exercising as well as inabil ity to interpret ECG Stress Symptoms: General Fatigue Exercise duration: 6 min33 sec Highest Stage Reached: Stage 3: 3.4 mph at 14% grade. Exercise capacity: 7.91 METs Duque Treadmill Score: 6.5 Rate Pressure Product: [id number] Stress ECG Conclusion 1. Resting electrocardiogram was within normal limits 2. The patient exercised on the Manoj protocol and completed a workload of 7.91 METS, stopping due to fatigue 3. Normal heart rate and blood pressure response to exercise. The patient achieved 94% of predicted heart rate for age 4. Electrocardiographically there was no evidence of myocardial ischemia 5. Sporadic atrial and ventricular ectopic beats were seen Duque Treadmill Score is 6.5 which is Low risk. Stress Test Summary STAGE Time (mins) Speed (mph) Grade (%) HR BP SYMPTOMS METS Supine 67 124/62 Standing 76 124/62 1 3 1.7 10 113 128/64 4.6 2 6 2.5 12 128 134/68 7 1 min recovery 111 162/78 3 min recovery 84 164/76 6 min recovery 81 142/72 Patient did not endorse chest pressure during exercise and monitored period.
== END 2021-11-10 01:00 ==
PROVIDERS: PCP Nurse Practitioner; Visit Provider Nurse Practitioner
DX: R07.9 Chest pain, unspecified (principal); Z82.49 Family history of ischemic heart disease and other diseases of the circulatory system; I10 Essential (primary) hypertension; E78.5 Hyperlipidemia, unspecified; Z87.891 Personal history of nicotine dependence; I49.1 Atrial premature depolarization; I49.3 Ventricular premature depolarization
CPT/HCPCS: 93016; 93018; 93017

== ENCOUNTER 2021-11-15 02:30 | Outpatient (CLI) | payer MEDICARE, SELFPAY ==
[2021-11-15 09:18] LABS: HCT 44.9 % (40.0-50.0); HGB 14.7 g/dL (13.5-17.5); MCH 29.9 pg (27.0-33.0); MCHC 32.7 % (32.0-36.0); MCV 91.4 fL (80-95); MPV 9.1 fL (8.0-11.0); Platelet Count 208 10^3/uL (130-400); RBC 4.91 10^6/uL (4.36-5.78); RDW 13.2 % (11.8-14.1); RDW-SD 44.8 fL; WBC 6.52 10^3/uL (4.4-10.8)
[2021-11-15 10:20] LABS: ALT 30 U/L (16-63); AST 15 U/L (15-37); Alkaline Phosphatase 39 U/L (46-116); Anion Gap 8.5 mmol/L (3-11); BUN 23 mg/dL (7-18); Bilirubin, Total 0.6 mg/dL (0.2-1.0); CO2 28.5 mmol/L (21.0-32.0); CREATININE 0.9 mg/dL (0.70-1.30); Calcium 8.6 mg/dL (8.5-10.1); Calculated LDL 101 mg/dL (<100); Chloride 107 mmol/L (98-107); Cholesterol 163 mg/dL (<200); Glucose 92 mg/dL (74-106); HDL Cholesterol 42 mg/dL (40-60); Sodium 144 mmol/L (136-145); Total Protein 6.5 g/dL (6.4-8.2); Triglyceride 100 mg/dL (<150)
== END 2021-11-15 02:31 | disposition home or self-care (01) ==
LOC: LBO 02:30
PROVIDERS: PCP Nurse Practitioner; Visit Provider Nurse Practitioner
DX: E78.00 Pure hypercholesterolemia, unspecified (principal); I10 Essential (primary) hypertension; N39.8 Other specified disorders of urinary system
CPT/HCPCS: 36415; 80053; 80061; 85027

== ENCOUNTER → 2022-10-26 15:47 | Outpatient (CLI) | payer MEDICARE, SELFPAY ==
--- NOTE | 2022-10-26 14:30 | DI.RAD_ITS ---
Exam(s) XR FOOT LT COMPLETE EXAM: XR FOOT LT COMPLETE CLINICAL HISTORY: cane fell on foot 2 weeks ago. Swelling. M79.89 S99.929A INJURY TECHNIQUE: COMPARISON: CR XR FOOT LT LIMITED from 06/11/2020 FINDINGS: Three views were obtained. Note is made of tibiotalar fusion. There are melgar articular degenerative changes of the foot. There is no evidence of fracture. IMPRESSION: RADIATION DOSE DELIVERED: Total DLP
== END ==
PROVIDERS: PCP Nurse Practitioner; Visit Provider Nurse Practitioner
DX: M79.89 Other specified soft tissue disorders (principal); S99.922A Unspecified injury of left foot, initial encounter
CPT/HCPCS: 73630

== ENCOUNTER 2022-11-21 09:25 | Outpatient (CLI) | payer MEDICARE, SELFPAY ==
[2022-11-21 09:37] LABS: ALT 28 U/L (16-63); AST 19 U/L (15-37); Albumin 4.1 g/dL (3.4-5.0); Alkaline Phosphatase 68 U/L (46-116); BUN 20 mg/dL (7-18); Bilirubin, Total 0.6 mg/dL (0.2-1.0); CREATININE 0.9 mg/dL (0.70-1.30); Calcium 8.7 mg/dL (8.5-10.1); Calculated LDL 89 mg/dL (<100); Chloride 107 mmol/L (98-107); Cholesterol 159 mg/dL (<200); Estimated GFR 90.74 (mL/min/1.73m2); Glucose 98 mg/dL (74-106); HDL Cholesterol 41 mg/dL (40-60); Potassium 4.1 mmol/L (3.5-5.1); Sodium 143 mmol/L (136-145); Total Protein 7.3 g/dL (6.4-8.2); Triglyceride 149 mg/dL (<150)
== END 2022-11-21 09:26 | disposition home or self-care (01) ==
LOC: LBO 09:26
PROVIDERS: PCP Nurse Practitioner; Visit Provider Nurse Practitioner
DX: I10 Essential (primary) hypertension (principal)
CPT/HCPCS: 36415; 80053; 80061

== ENCOUNTER 2022-12-01 02:44 | Outpatient (CLI) | payer MEDICARE, SELFPAY ==
[2022-12-01 23:11] LABS: PSA, Screening 1.2 ng/mL (<=6.5)
== END 2022-12-01 02:45 | disposition home or self-care (01) ==
LOC: LBO 02:44
PROVIDERS: PCP Nurse Practitioner; Visit Provider Nurse Practitioner
DX: Z12.5 Encounter for screening for malignant neoplasm of prostate (principal)
CPT/HCPCS: 36415; 84153

== ENCOUNTER 2023-12-03 04:16 | Outpatient (CLI) | payer MEDICARE, SELFPAY ==
[2023-12-03 08:45] LABS: HCT 44.2 % (40.0-50.0); HGB 14.9 g/dL (13.5-17.5); MCHC 33.7 % (32.0-36.0); MCV 89 fL (80-95); Platelet Count 204 10^3/uL (130-400); RBC 4.97 10^6/uL (4.36-5.78); RDW 13.4 % (11.8-14.1); WBC 6.23 10^3/uL (4.4-10.8)
[2023-12-03 09:30] LABS: ALT 31 U/L (16-63); AST 18 U/L (15-37); Albumin 3.9 g/dL (3.4-5.0); Alkaline Phosphatase 34 U/L (46-116); Anion Gap 5.8 mmol/L (3-11); BUN 21 mg/dL (7-18); Bilirubin, Total 0.9 mg/dL (0.2-1.0); CO2 26.2 mmol/L (21.0-32.0); CREATININE 0.9 mg/dL (0.70-1.30); Calcium 8.7 mg/dL (8.5-10.1); Calculated LDL 86 mg/dL (<100); Chloride 107 mmol/L (98-107); Cholesterol 145 mg/dL (<200); Estimated GFR 90.18 (mL/min/1.73m2); Glucose 101 mg/dL (74-106); HDL Cholesterol 41 mg/dL (40-60); Potassium 3.8 mmol/L (3.5-5.1); Sodium 139 mmol/L (136-145); Triglyceride 91 mg/dL (<150)
[2023-12-03 17:56] LABS: PSA, Screening 0.7 ng/mL (<=6.5)
== END 2023-12-03 04:17 | disposition home or self-care (01) ==
LOC: LBO 04:16
PROVIDERS: PCP Nurse Practitioner; Referring Provider Nurse Practitioner; Visit Provider Nurse Practitioner
DX: I10 Essential (primary) hypertension; N40.0 Benign prostatic hyperplasia without lower urinary tract symptoms; R43.0 Anosmia; R39.11 Hesitancy of micturition
CPT/HCPCS: 36415; 80053; 80061; 84153; 85027

== ENCOUNTER → 2024-01-01 11:34 | Outpatient (CLI) | payer MEDICARE, SELFPAY ==
--- NOTE | 2024-01-01 11:00 | DI.RAD_ITS ---
Exam(s) XR HAND RT COMPLETE EXAM: XR HAND RT COMPLETE CLINICAL HISTORY: pain, injury 3 weeks ago,m79.641,T14.90xa. TECHNIQUE: 2D digital imaging was performed. Three views. COMPARISON: No exams were available for comparison FINDINGS: BONES: No acute fracture is present. No bony destructive lesion is seen. JOINTS: No dislocation present. Severe degenerative changes with prominent spurring at the distal i nterphalangeal joints of the fingers. SOFT TISSUE: Normal. IMPRESSION: Degenerative changes. No acute abnormality. DATA REPOSITORY: RADIATION DOSE DELIVERED:
== END ==
PROVIDERS: PCP Nurse Practitioner; Visit Provider Nurse Practitioner
DX: M79.641 Pain in right hand (principal); T14.90XA Injury, unspecified, initial encounter; X58.XXXA Exposure to other specified factors, initial encounter
CPT/HCPCS: 73130

== ENCOUNTER → 2024-02-04 13:43 | Outpatient (CLI) | payer MEDICARE, SELFPAY ==
--- NOTE | 2024-02-04 | DI.MRI_ITS ---
Exam(s) MR LUMBAR SPINE WO EXAM: MR LUMBAR SPINE WO CLINICAL HISTORY: LE [id number] Spinal stenosis, M54.16 Radiculopathy lumbar reg,R20.0,. TECHNIQUE: Multiplanar multisequence MRI of the Lumbar spine was performed. COMPARISON: MR MR LUMBAR SPINE WO from 01/19/2021 FINDINGS: Bones: The last intervertebral disc space is designated the L5/S1 level for the numbering purpose of this examination. There are endplate osteophytes at multiple levels of the lumbar spine but most ma rked at L2-3 through L4-L5. There are degenerative endplate signal changes throughout the lumbar spin e. There is L5 spondylolysis and grade 1 spondylolisthesis of L5 on S1. There is disc desiccation th roughout the lumbar spine. There is a right convex lumbar scoliosis. Cord: The conus tip ends at the L1 level. It is of normal size and signal intensity. T12-L1: No disc herniations or bulges are present. No central spinal canal or neural foraminal stenos is. L1-2: There is a diffuse disc bulge. There are hypertrophic changes of the facets and ligamentum fla vum. There is moderate narrowing of the central spinal canal. There is moderate bilateral neural fo raminal stenosis, left greater than right. L2-3: There is a diffuse disc bulge. There are hypertrophic changes of the facets and ligamentum fla vum. The results are moderately severe central spinal canal stenosis. There is moderate right and m arked left neural foraminal stenosis. L3-4: There is a mild diffuse disc bulge. There are hypertrophic changes of the facets and ligamentu m flavum. There is moderately severe central spinal canal stenosis. There is moderately severe righ t and marked left neural foraminal stenosis. L4-5: There are degenerative changes of the facets and hypertrophy of the ligamentum flavum. There i s a mild diffuse disc bulge. There is mild narrowing of the central spinal canal. There is marked r ight and moderately severe left neural foraminal stenosis. L5-S1: There is a mild diffuse disc bulge. There are degenerative changes of the facets. There is n o significant central spinal stenosis. There is marked bilateral neural foraminal stenosis. Soft tissues: The visualized SI joints and sacrum are well maintained. There is again seen marked atr ophy of the right psoas muscle. Visualized abdominal organs: There is a cyst in the left kidney. No follow-up is recommended. IMPRESSION: 1. Marked multilevel degenerative changes in the lumbar spine. The findings result in multilevel lurdes tral spinal canal and neural foraminal stenosis. The findings are most marked from L1-L2 through L4- L5 as described above. 2. Multilevel central spinal canal and neural foraminal stenosis is seen. DATA REPOSITORY:
== END ==
PROVIDERS: PCP Nurse Practitioner; Visit Provider Nurse Practitioner
DX: M99.53 Intervertebral disc stenosis of neural canal of lumbar region (principal)
CPT/HCPCS: 72148

== ENCOUNTER 2024-06-06 22:29 | Outpatient (REF) | payer MEDICARE, SELFPAY | END 2024-06-06 22:30 | disposition home or self-care (01) | LOC: NCHCN 22:29 | PROVIDERS: PCP Nurse Practitioner; Visit Provider Nurse Practitioner Family | DX: R10.9 Unspecified abdominal pain (principal) | CPT/HCPCS: 82272 ==

== ENCOUNTER 2024-09-17 16:50 | Outpatient (CLI) | payer MEDICARE, SELFPAY ==
--- NOTE | 2024-09-17 16:45 | RT.EKG_ITS ---
APPROVED REPORT Exam: Resting ECG Reason for Exam: pre-op Patient Location: O HR:65 bpm ECG Measurements Heart Rate 65 AXIS MD 161 P 36 QRSd 94 QRS -16 QT 427 T 23 QTc 444 Conclusion Sinus rhythm...normal P axis, V-rate 50- 99 Borderline left axis deviation...QRS axis (-15,-29) Artifact in lead(s) I,II,III,aVR,aVL,aVF
== END 2024-09-17 16:51 | disposition home or self-care (01) ==
LOC: DI.KIM 16:51
PROVIDERS: PCP Nurse Practitioner; Visit Provider Nurse Practitioner
DX: Z01.818 Encounter for other preprocedural examination (principal)
CPT/HCPCS: 93010

== ENCOUNTER 2025-01-07 04:45 | Outpatient (CLI) | payer MEDICARE, SELFPAY ==
[2025-01-07 10:34] LABS: ALT 26 U/L (16-63); AST 18 U/L (15-37); Alkaline Phosphatase 45 U/L (46-116); Anion Gap 7.4 mmol/L (3-11); BUN 19 mg/dL (7-18); Bilirubin, Total 0.75 mg/dL (0.2-1.0); CO2 27.6 mmol/L (21.0-32.0); Calcium 8.9 mg/dL (8.5-10.1); Calculated LDL 93 mg/dL (<100); Chloride 109 mmol/L (98-107); Cholesterol 149 mg/dL (<200); Estimated GFR 78.98 (mL/min/1.73m2); Glucose 100 mg/dL (74-106); HDL Cholesterol 41 mg/dL (40-60); Potassium 4.1 mmol/L (3.5-5.1); Sodium 144 mmol/L (136-145); Triglyceride 75 mg/dL (<150)
[2025-01-07 17:48] LABS: PSA, Screening 0.7 ng/mL (<=6.5)
== END 2025-01-07 04:46 | disposition home or self-care (01) ==
LOC: LBO 04:45
PROVIDERS: PCP Nurse Practitioner; Referring Provider Nurse Practitioner; Visit Provider Nurse Practitioner
DX: N40.0 Benign prostatic hyperplasia without lower urinary tract symptoms (principal); Z12.5 Encounter for screening for malignant neoplasm of prostate; I10 Essential (primary) hypertension
CPT/HCPCS: 36415; 80053; 80061; 84153

== ENCOUNTER 2025-01-26 00:52 | Outpatient (CLI) | payer MEDICARE, SELFPAY ==
--- NOTE | 2025-01-26 05:45 | ETT_ITS ---
APPROVED REPORT Exam: Exercise Treadmill Patient Location: Out-Patient Room/Bed: Stress Nurse: Sherry Zimmer RN Ordering Provider:DENISMatias VILLEGASE, Contact Number: [phone] BMI: 32.61 Baseline Rhythm: Sinus Bradycardia Indications: Dyspnea on exertion Medical History Medical History: HTN, chest pressure, BPH, elevated cholesterol Cardiac Medications: Atorvastatin, gabapentin, losartan, omeprazole Allergies: Benzoin Cardiac Risk Factors: Family hx, HTN, HLD, former smoker Previous Cardiac Procedures: None Pretest Chest Pain Characteristics: None Exercise History: Indeterminate Physical Disabilities: Drop foot, fused ankle ankle Lung Sounds: Clear to auscultation Heart Sounds: Bradycardia Stress Test Details Test: Exercise stress testing was performed using a Manoj protocol. Rest Stress HR Resting HR Supine: 58 bpm Max Heart Rate (APMHR): 146 bpm Resting HR Standin bpm Target HR (85% APMHR): 124 bpm Max HR Achieved: 126 bpm % of APMHR: 86 Recovery HR: 60 bpm HR response to stress: Normal HR response to stress BP Resting BP Supine: 102/80 mmHg Resting BP Standin/84 mmHg Max BP: 170/80 mmHg Recovery BP: 120/86 mmHg BP response to stress: Normal blood pressure response to stress. ECG Resting ECG: Sinus Rhythm Stress ECG: Sinus Tachycardia ST Change: No significant ST segment changes noted Arrhythmia: Occasional PAC's Recovery ECG: Sinus Rhythm Recovery ST Change: No significant ST segment changes noted Recovery Arrhythmia: Occasional PAC's Clinical Reason for Termination: Target HR Achieved, physical limitation/staff concern for fall risk Stress Symptoms: None Exercise duration: 03 min21 sec Highest Stage Reached: Stage 2: 2.5 mph at 12% grade. Exercise capacity: 5.05 METs Angina Score: None Duque Treadmill Score: 2.7 Rate Pressure Product: [id number] Stress ECG Conclusion 1. Resting electrocardiogram was normal 2. Patient exercised on Manoj protocol and completed workload of 5 METS 3. Normal heart rate and blood pressure response to exercise. The patient achieved 86% of maximal pr edicted heart rate for age 4. There was no electrocardiographic evidence of myocardial ischemia 5. Multiple atrial premature beats were noted Duque Treadmill Score is 2.7 which is Moderate risk. Stress Test Summary STAGE Time (mins) Speed (mph) Grade (%) HR BP SpO2 SYMPTOMS METS Supine 58 102/80 95% Standing 66 130/84 1 3 1.7 10 106 150/84 94% 4.5 2 6 2.5 12 126 7 1 min recovery 79 170/80 96% 3 min recovery 59 142/89 97% 6 min recovery 60 120/86 96% Patient left ambulatory in no apparent distress.
== END 2025-01-26 01:12 ==
LOC: DI 00:53
PROVIDERS: PCP Nurse Practitioner; Visit Provider Internal Medicine Cardiovascular Disease
DX: R06.09 Other forms of dyspnea (principal); I49.1 Atrial premature depolarization
CPT/HCPCS: 93016; 93018; 93017

== ENCOUNTER 2025-03-29 03:01 | Emergency (ER) | payer MEDICARE, SELFPAY ==
[2025-03-29] VITALS (45 sets, daily range): BP systolic 122–172; BP diastolic 65–108; PULSE 58–87; RESP 9–23; TEMP 36.8; O2SAT 93–98
--- NOTE | 2025-03-29 03:00 | DI.CT_ITS ---
Exam(s) CT ABDOMEN PELVIS CTA EXAM: CT ABDOMEN PELVIS CTA CLINICAL HISTORY: GI Bleed. TECHNIQUE: Imaging Protocol: Axial CT angiography was performed with multi-slice acquisition and m ulti-planar and/or 3D reconstructions. CONTRAST MATERIAL: Intravenous: Omnipaque 350 Contrast volume:100 ml Oral: no Intravenous: Omnipaque 350 Contrast volume:100 ml COMPARISON: No exams were available for comparison FINDINGS: Exam mildly limited by motion and artifact by hip prostheses. Aorta: Atherosclerotic changes of aorta and branch vessels.. No aneurysm. No dissection. No signific ant stenosis. Iliac Arteries: No evidence of stenosis. Common Femoral Arteries: No evidence of stenosis. Celiac [place]:No evidence of stenosis. SMA: No evidence of stenosis. Renal Arteries: No evidence of stenosis. There is a single renal artery perfusing each kidney. YAS: P atent. Venous structures: Patent. Lung bases:No acute findings. Liver: Normal size. Normal density. No measurable mass. Gallbladder and biliary tract: No evidence of calculi. No gallbladder wall thickening. No biliary di lation. Pancreas: Normal density, no abnormal calcifications or inflammatory process. Spleen: Normal. Kidneys: Normal size, contour and axis. No obstructive uropathy. No suspicious masses seen. Left [place] cysts. No follow-up recommended. No evidence of calculi. Adrenal glands: No masses seen. Bladder: Partially obscured by artifact. No gross wall thickening. No evidence of calculi. No evide nce of mass. Bowel: There is a sigmoid anastomosis which appears unremarkable.. There is diverticulosis of the d escending and sigmoid colon. There is some stranding around the colon the lower descending portion. Arterial phase images show focal contrast extravasation in this area, consistent with active GI blee d. No additional abnormal foci of extravasation are identified. Appendix normal. No obstruction. Peritoneal cavity: No ascites. No focal collection. Lymph nodes: Within normal limits. Reproductive: Unremarkable. Partially obscured by artifact. Soft Tissues:Unremarkable. Bones: Bilateral hip prostheses. Degenerative changes and scoliosis. Bilateral L5 pars defects and mild L5-S1 spondylolisthesis. IMPRESSION: Findings consistent with diverticulitis of the mid to lower descending colon with active hemorrhage. RADIATION DOSE DELIVERED: Total DLP Total DLP Total DLP DATA REPOSITORY: All CT scans at this facility are submitted to the National Radiology Data Registry (NRDR) Dose Index Registry (DIR) with the [employer] (A[employer]). RADIATION OPTIMIZATION: All CT scans at this facility use at least one of these dose optimization te chniques: automated exposure control; mA and/or kV adjustment per patient size (includes targeted exa ms where dose is matched to clinical indication); or iterative reconstruction.
--- NOTE | 2025-03-29 03:03 | W.ED.GENAD ---
Discharge Plan Disposition Patient Disposition: Transfer-Acute Inpatient Care Specific Acute Inpt Facility: [facility] Condition: Stable Discharge Details Clinical Impression: Acute lower gastrointestinal hemorrhage Primary Care Provider: Shoshana Randolph ED Provider: Abdiel Cooney and Naun Rx's Prescriptions: No Action gabapentin 300 mg capsule See Rx Instructions PO QHS Qty: 180 3RF Rx Instructions: 1-2 caps at HS ibuprofen 800 mg tablet 800 mg PO TID PRN (Reason: pain) Qty: 90 12RF atorvastatin [Lipitor] 10 mg tablet 10 mg PO DAILY Qty: 90 3RF losartan 25 mg tablet 25 mg PO DAILY Qty: 90 3RF HPI General Mode of arrival: ambulatory. Date/Time Provider Initiated Documentation: 03/29/25 03:03. Limitations to Documentation: no limitations. Information obtained by: patient, RN notes reviewed and old records reviewed. HPI Narrative: Patient presents to ED after waking up with blood in his bed. Patient thought he was passing gas but ended up passing liquid which turned out to be dark red. He then went to the bathroom and passed more dark red stool. He does have a history of diverticulitis. He has had 2 colon resections in the past, one for diverticulitis and the other for a polyp that they could not remove endoscopically. He gets colonoscopies on a regular basis. He has been fine and has never really passed bloody stool like this before. He does have a history of hemorrhoids. He denies any lightheadedness, dizziness, chest pain, shortness of breath, abdominal pain, vomiting. He is not on anticoagulation but does take a fair amount of ibuprofen. He denies any black stool. Related Data Home Medications ?Medication ?Instructions ?Recorded ?Confirmed atorvastatin 10 mg tablet (Lipitor) 10 mg PO DAILY #90 tab-caps 08/12/24 03/29/25 losartan 25 mg tablet 25 mg PO DAILY #90 tab-caps 09/30/24 03/29/25 ibuprofen 800 mg tablet 800 mg PO TID PRN pain #90 tab-caps 01/19/25 03/29/25 gabapentin 300 mg capsule See Rx Instructions PO QHS #180 03/17/25 03/29/25 caps Previous Rx's ?Medication ?Instructions ?Recorded atorvastatin 10 mg tablet (Lipitor) 10 mg PO DAILY #90 tab-caps 08/12/24 losartan 25 mg tablet 25 mg PO DAILY #90 tab-caps 09/30/24 ibuprofen 800 mg tablet 800 mg PO TID PRN pain #90 tab-caps 01/19/25 gabapentin 300 mg capsule See Rx Instructions PO QHS #180 03/17/25 caps Allergies Allergy/AdvReac Type Severity Reaction Status Date / Time benzoin Allergy Intermediate itchy, Verified 03/29/25 03:23 scratchy, redness that stayed Exam Narrative Exam Narrative: Const: WDWN male in NAD. VS per triage. HEENT: NC/AT. Normal facial exam. Neck: Supple. Trachea midline. Lungs: Normal respiratory effort. Lungs are clear. Cor: RRR. Good radial pulses. GI: Soft/ND/NT. Neuro: A+O x 3. Normal speech, mentation. Cranial nerves II - XII grossly intact. No gross motor or sensory deficit. Ext: No C/C/E. Medical Decision Making Patient presenting to ED with complaint of dark red blood per rectum. He has not had this previously but does have history of diverticulitis and known diverticula. He is not anticoagulated. He denies having black stool. He is hemodynamically stable. He is actually hypertensive. He is not tachycardic. Most likely is having a lower GI bleed from diverticulum. 2 IVs established. Laboratory studies sent including a type and screen. CTA of the abdomen pelvis to evaluate for GI bleed is ordered. 04:30 - Patient remains hemodynamically stable. Laboratory studies are fine. Hemoglobin, platelets, coags are all normal. Type and screen has been processed. CTA of the abdomen pelvis was discussed with radiologist. Patient does have evidence of active extravasation into the mid descending colon consistent with diverticular bleeding. I have discussed findings with the patient. Recommendation is transfer to tertiary care where there is interventional radiology available. Patient is agreeable to same. Call has been placed to [facility]. Images have been sent for their review. I am pending a call back to see if they will accept him. 05:30 - Patient discussed with GI at [facility]. They agree that he needs to be transferred to higher level of care. He will be transferred from our ED to their ED for evaluation by GI and IR. Accepting physician is Dr. Ernst. Patient to be transported by ambulance with IV fluids running. Currently remains completely stable in our ED. Medical Records Medical records reviewed: Yes I reviewed the patient's medical records. Lab Data Lab results reviewed: Yes I reviewed the patient's lab results. Lab results narrative: see [facility] All Active Problems (Updated 03/29/25 @ 04:34 by Abdiel Cooney MD) Acute lower gastrointestinal hemorrhage (Acute) Subacromial impingement of right shoulder (Acute) Weakness of right foot (Acute ~02/2025) 03/12/25 Orthopedics - plan for AFO Internal hemorrhoids (Acute) Bilateral cataracts (Acute ~01/2022) 01/27/22 being monitored per note from Chandan Arthritis of ankle, left (Acute) Voiding dysfunction (Acute) Urinary incontinence (Acute) DDD (degenerative disc disease) (Acute) Left carpal tunnel syndrome (Acute) s/p ECTR 03/29/2021 Right carpal tunnel syndrome (Acute) s/p ECTR 03/29/2021 [place] (Acute) 01/04/21 [facility] Neurology Dr Conteh 08/01/23 Otolaryngology Urinary hesitancy (Acute) History of fracture (Acute) Elevated glucose (Acute) Polyneuropathy (Acute) 12/16/19-[facility] Neurology-Dr Conteh ?small fiber neuropathy Back pain (Acute) Hand pain (Acute) Right sided sciatica (Acute) Loss of taste (Acute) Elevated cholesterol (Chronic) History of right lateral epicondylitis (Acute) Post-nasal drip (Acute) 10/07/18 ENT (Alec Luna PA-C) Tubular adenoma (Chronic 10/25/15) Medical History BPH (benign prostatic hyperplasia) Right foot drop 04/03/24 Neurosurgical Services at [facility], Dr Farris 03/12/25 F/u Orthopaedics Spinal stenosis, lumbar region with neurogenic claudication (~12/2024) 01/06/25 F/U with Dr Robles Essential hypertension Actinic keratosis H/O seborrheic keratosis Spontaneous rupture of extensor tendons, right shoulder Surgical History S/P hemilaminotomy (~09/2024) 10/13/24 Dr Robles, Right L-4. Facetectomies of Right L3-4, and L4-5 S/P colonoscopy (~10/15/22) Dr Acosta S/P ankle arthrodesis (08/09/22) left Hx of shoulder surgery (08/15/20) Rotator Cuff Repair, [facility]FL[facility]-Dr Man 11/23/[address] Man, with f/u in 6w - R roatator cuff syndrome diverticulitis resection (04/05/06) colonoscopy 2004,07/02/09, 08/09/10, 10/31/13, 12/19/16 Total hip (07/01/07) Right Total replacement of hip (08/24/08) left Rotator Cuff Repair (09/27/15) Left Excision, of Osteophytes (03/18/01) from the anterior distal tibia and from the talus left ankle. Arthrotomy (08/22/06) left ankle with excision of osteophytes (debridement of ankle joint) Family History Mother Lung cancer Father Stroke Sister No problems noted. Sister No problems noted. Brother No problems noted. Son No problems noted. Daughter No problems noted. Social History Smoking/Tobacco Use Status: Former Tobacco Use Quit Date: 11/26/89 Second Hand Exposure: No Smoking risk assessment performed?: Yes Alcohol Intake: current Alcohol Intake frequency: a few times a week Alcohol type: beer and wine Counseling given: No Drug use: Never Substance use type: does not use Adopted: No Foster care: No Household members: spouse Housing: house Number of Children: 6 number of grandchildren: 13 Communication Needs: None Education Level: college Details: BS degree current occupation: Business Information Technology Director Pets and animals: No Do you think of yourself as: straight/heterosexual Current gender identity: male What is your relationship status?: How often do you talk on the phone with friends or family?: three or more times per week Panel score (0-1 are the most socially isolated patients): 2 What type of physical activity do you participate in: other Details: golf Duration: 15-30 minutes/day Frequency: 3-4 times per week Special irma needs: No Agree to transfusion: Yes Seatbelt use: always Drive intox or ride w/intox public transit trolley driver: No Working smoke detector in home: Yes Fire extinguisher in home: Yes Carbon monox detector in home: Yes Do you feel safe at home: Yes Do you feel safe in your relationship?: Yes Victim of physical abuse: No Victim of emotional abuse: No Victim of sexual abuse: No
[2025-03-29 03:27] LABS: Abs Immature Grans 0.02 10^3/uL (0.0-0.06); Absolute Basophil Count 0.05 10^3/uL (0.0-0.2); Absolute Eosinophil Count 0.24 10^3/uL (0.0-0.7); Absolute Lymphocyte Count 1.73 10^3/uL (1.2-3.4); Absolute Monocyte Count 0.61 10^3/uL (0.1-0.8); Absolute Neutrophil Count 5.16 10^3/uL (1.2-6.7); Basophils % 0.6 %; Eosinophils % 3.1 %; HCT 40.4 % (40.0-50.0); HGB 14.1 g/dL (13.5-17.5); Immature Grans % 0.3 %; Lymphocytes % 22.2 %; MCH 30.6 pg (27.0-33.0); MCHC 34.9 % (32.0-36.0); MCV 88 fL (80-95); MPV 9.4 fL (8.0-11.0); Monocytes % 7.8 %; Platelet Count 262 10^3/uL (130-400); RBC 4.61 10^6/uL (4.36-5.78); RDW 13.1 % (11.8-14.1); RDW-SD 41.8 fL; WBC 7.81 10^3/uL (4.4-10.8)
[2025-03-29 03:34] LABS: PTT Activated 26.5 sec (20.6-30.2); Prothrombin Time 9.9 sec (9.1-11.1)
[2025-03-29 03:36] LABS: ALT 34 U/L (16-63); AST 23 U/L (15-37); Albumin 3.8 g/dL (3.4-5.0); Alkaline Phosphatase 53 U/L (46-116); Anion Gap 9.6 mmol/L (3-11); BUN 25 mg/dL (7-18); Bilirubin, Total 0.5 mg/dL (0.2-1.0); CO2 24.4 mmol/L (21.0-32.0); CREATININE 0.9 mg/dL (0.70-1.30); Calcium 8.5 mg/dL (8.5-10.1); Chloride 109 mmol/L (98-107); Estimated GFR 89.62 (mL/min/1.73m2); Glucose 115 mg/dL (74-106); Potassium 3.8 mmol/L (3.5-5.1); Sodium 143 mmol/L (136-145); Total Protein 7.1 g/dL (6.4-8.2)
[2025-03-29] MEDS: Omnipaque 350 MG/ML 100 ML BTL IJ (03:51)
[2025-03-29] MEDS: Normal Saline - Diluent 50 ML VIAL IJ (03:52)
--- NOTE | 2025-03-29 04:22 | DI.VRAD_ITS ---
PROCEDURE INFORMATION: Exam: CTA Abdomen and Pelvis With Contrast Exam date and time: 03/29/2025 3:36 AM Age: 74 years old Clinical indication: Other: Gi bleed; PT sts bleeding from bottom TECHNIQUE: Imaging protocol: Computed tomographic angiography of the abdomen and pelvis with contrast. Exam focused on the arteries. 3D rendering (Not supervised by radiologist): MIP and/or 3D reconstructed images were created by the technologist. Contrast material: OMNI 350; Contrast volume: 100 ml; Contrast route: INTRAVENOUS (IV); COMPARISON: CR XR hip RT complete AP pelvis 09/12/2018 9:41 AM FINDINGS: Limitations: Images degraded due to artifact caused by bilateral hip prostheses. Mild motion artifact. Coronary arteries: Coronary artery calcifications. Aorta: Atherosclerotic changes in the aorta and its branches. Celiac trunk and mesenteric arteries: No occlusion or significant stenosis. Renal arteries: No occlusion or significant stenosis. Right iliac arteries: No occlusion or significant stenosis. Left iliac arteries: No occlusion or significant stenosis. Liver: No focal hepatic lesion seen. Gallbladder and biliary ducts: No radiodense gallbladder calculi identified. Pancreas: No evidence for acute pancreatitis. Spleen: No splenomegaly. Adrenal glands: No mass. Kidneys and ureters: Left renal cysts. Stomach and bowel: There is contrast extravasation in the mid descending colon consistent with active gastrointestinal hemorrhage. Colonic diverticula are noted. There is fat stranding adjacent to the colon in this area suggesting mild focal diverticulitis. No intestinal obstruction is evident. Appendix: No evidence of appendicitis. Intraperitoneal space: No free air. Lymph nodes: Nonspecific mesenteric lymph nodes. Urinary bladder: No bladder wall thickening. Reproductive: Unremarkable as visualized. Bones/joints: Bilateral hip prostheses. Artifact limits evaluation of the surrounding tissues. Degenerative changes and curvature in the spine. 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 Anterolisthesis of L5 on S1. Soft tissues: Unremarkable. IMPRESSION: 1. Active hemorrhage in the descending colon. Mild fat stranding adjacent to diverticula in this area suggest diverticulitis. 2. Additional findings as above. 3. THIS REPORT CONTAINS FINDINGS THAT MAY BE CRITICAL TO PATIENT CARE. The findings were verbally communicated via telephone conference with ANA M CHOU at 4:19 AM EDT on 03/29/2025. The findings were acknowledged and understood. Dictated and Authenticated by: Amanda Soto MD. Orderin Eros Meadows MD
[2025-03-29] MEDS: Lactated Ringers 1,000 ML 200 ML IV (04:55)
--- NOTE | 2025-03-29 05:37 | NUR.NOTE ---
PTs car keys are with security. PT unable to move car parked in front of ED. PTs friend will come later to move car. Nursing Note:
== END 2025-03-29 07:42 | disposition short-term general hospital (02) ==
PROVIDERS: Emergency Provider Emergency Medicine; PCP Nurse Practitioner
DX: K92.2 Gastrointestinal hemorrhage, unspecified (principal); Z87.19 Personal history of other diseases of the digestive system; I10 Essential (primary) hypertension
CPT/HCPCS: 99285 ×2; 36415; 80053; 86850; 86900; 86901; 96360; 96361; 74174; 83735; 85025; 85610; 85730; J3490

== ENCOUNTER → 2025-10-19 02:19 | Outpatient (CLI) | payer MEDICARE, SELFPAY ==
--- NOTE | 2025-10-19 14:27 | DI.US_ITS ---
APPROVED REPORT Exam: Exercise Treadmill Patient Location: Out-Patient Room/Bed: Stress Nurse: Bertha Briseno Ordering Provider:AMERICA YUNG, Contact Number: [phone] BMI: 32.44 Baseline Rhythm: Sinus Rhythm Indications: dyspnea and chest pressure on exertion; preop Medical History Medical History: polyneuropathy, HLD, BPH, R foot drop, HTN, spinal stenosis, diverticulitis Cardiac Medications: gabapentin, atorvastatin, losartan Allergies: benzoin Cardiac Risk Factors: family hx, htn, hld Previous Cardiac Procedures: n/a Pretest Chest Pain Characteristics: No chest pain Exercise History: Indeterminate Physical Disabilities: R foot, Back Lung Sounds: Clear to auscultation Heart Sounds: Regular Stress Test Details Test: Exercise stress testing was performed using a Manoj protocol. Rest Stress HR Resting HR Supine: 62 bpm Max Heart Rate (APMHR): 145 bpm Resting HR Standin bpm Target HR (85% APMHR): 123 bpm Max HR Achieved: 117 bpm % of APMHR: 81 Recovery HR: 67 bpm BP Resting BP Supine: 140/88 mmHg Resting BP Standin/88 mmHg Max BP: 182/82 mmHg Recovery BP: 142/80 mmHg BP response to stress: Normal blood pressure response to stress. ECG Resting ECG: Sinus Rhythm Ectopy: rare PAC Stress ECG: Sinus Tachycardia ST Change: Nondiagnostic low heart rate Arrhythmia: occasional PACs Recovery ECG: Sinus Rhythm Recovery ST Change: Nondiagnostic low heart rate Recovery Arrhythmia: occasional PACs Clinical Reason for Termination: patient safety, artifact Stress Symptoms: General Fatigue, Dyspnea Exercise duration: 04 min22 sec Highest Stage Reached: Stage 2: 2.5 mph at 12% grade. Exercise capacity: 6.28 METs Angina Score: None Rate Pressure Product: [id number] Stress ECG Conclusion 1. Resting electrocardiogram showed low voltage 2. Patient exercised on the Manoj protocol and completed workload of 6 METS 3. Normal heart rate and blood pressure response to exercise. The Tatian achieved 81% of maximal predicted heart rate for age 4. The electrocardiographic portion of the test showed no evidence of myocardial ischemia at a minimally submaximal heart rate 5. There were no significant dysrhythmias Stress Test Summary STAGE Time (mins) Speed (mph) Grade (%) HR BP SpO2 SYMPTOMS METS Supine 62 140/88 Standing 61 148/88 1 3 1.7 10 117 4.5 1 min recovery 92 182/82 3 min recovery 75 152/84 96 6 min recovery 67 142/80 Test stopped related to patient safety on treadmill and inability to read EKD r/t artifact. Pt experienced mild SOB while exercising, all symptoms resolved by end of test. Pt left ambulatory in no acute distress. MPI Conclusion This is a stress echocardiogram. Resting left ventricular function was normal Postexercise left ventricular function showed improvement, from 60% at baseline to greater than 70% with augmented contractility of all segments There was no echocardiographic evidence of myocardial ischemia
== END ==
LOC: DI 02:19
DX: R06.09 Other forms of dyspnea (principal); R07.89 Other chest pain
CPT/HCPCS: 93306; 93350; 93017

== ENCOUNTER → 2025-10-26 03:38 | Outpatient (CLI) | payer MEDICARE, SELFPAY ==
--- NOTE | 2025-10-26 06:30 | DI.NM_ITS ---
APPROVED REPORT Exam: Pharmacologic Patient Location: Out-Patient Room/Bed: Stress Nurse: Machelle Du RN Ordering Provider:AMERICANITESH LAMDILSHAD, Contact Number: [phone] BMI: 32.44 Baseline Rhythm: Sinus Bradycardia. Comment: Rare PAC's. Indications: Evaluate for Altered Conduction; SOB; Chest Discomfort; Pre-op. Medical History Medical History: BPH; Diverticulitis; HLD; HTN; Right Foot Drop; Polyneuropathy; Spinal Stenosis. Cardiac Medications: Atorvastatin; Gabapentin; Losartan. Allergies: Benzoin. Cardiac Risk Factors: Family Hx; HLD; HTN. Previous Cardiac Procedures: None. Pretest Chest Pain Characteristics: None. Exercise History: Indeterminate. Physical Disabilities: Right Foot Drop. Lung Sounds: Clear bilaterally throughout, anterior and posterior. Heart Sounds: S1 and S2 auscultated. Stress Test Details Test: Pharmacologic stress testing performed using 0.4 mg of regadenoson per 5 mL given IV over 10 seconds. Reason for pharmacologic stress test: Physical Limitation (pt. has right foot drop); Too much artifact noted for RN to safely read the EKG. Nuclear Acquisition: Rest Tc-99m/Stress Tc-99m 1 day Rest Isotope: Tc-99m Sestamibi. Dose: 7.0 Date: 10/26/2025 Injection Time: 0918 Stress Isotope: Tc-99m Sestamibi. Dose: 21.0 Date: 10/26/2025 Injection Time: 1123 HR Resting HR Supine: 55 bpm Max Heart Rate (APMHR): 145 bpm Resting HR Standin bpm Target HR (85% APMHR): 123 bpm Max HR Achieved: 145 bpm % of APMHR: 100 Recovery HR: 70 bpm HR response to stress: Normal HR response to stress. Comment: Unclear if pt. actually achieved their maximum heart rate; pt. was having significant artifact when walking on the treadmill. BP Resting BP Supine: 118/84 mmHg Resting BP Standin/96 mmHg Max BP: 138/100 mmHg Recovery BP: 120/94 mmHg BP response to stress: Normal blood pressure response to stress. ECG Resting ECG: Sinus Bradycardia. Ectopy: Rare PAC's. Stress ECG: Sinus Rhythm. ST Change: Nondiagnostic low heart rate. Arrhythmia: Occasional PAC's. Recovery ECG: Sinus Rhythm. Recovery ST Change: Nondiagnostic low heart rate. Recovery Arrhythmia: Occasional PAC's. Clinical Stress Symptoms: Abdominal Discomfort. Angina Score: None Rate Pressure Product: [id number] Stress ECG Conclusion 1. Resting electrocardiogram was normal 2. Patient underwent testing using pharmacologic stress with regadenoson 3. The electrocardiographic portion of the test was nondiagnostic 4. See MPI report Stress Test Summary STAGE HR BP SpO2 Symptoms NOTES Supine 55 118/84 93 Standing 62 138/96 93 1 min post Lexiscan injection 64 138/100 96 Pt. c/o mild abdominal discomfort. 3 min post Lexiscan injection 71 110/90 98 Pt. c/o minimal abdominal discomfort. 6 min post Lexiscan injection 70 120/94 95 Pt. states that all symptoms have resolved and returned to baseline. Pt. performed a NM MPI stress test using the laying lexiscan protocol. Pt. attempted a walking lexiscan protocol, but due to his physical limitation (pt. has right foot drop) and due to the significant amount of artifact noted by RN when pt. was walking on the treadmill, making it difficult for the RN to safely read the EKG, pt. was transitioned to a laying lexiscan protocol. Pt. c/o mild abdominal discomfort immediately post lexiscan injection. Pt. c/o minimal abdominal discomfort 3 minutes post lexiscan injection. Pt. stated that all symptoms had returned to baseline 6 minutes post lexiscan injection. Pt. was conversing pleasantly with nursing staff upon leaving the Stress Lab. Pt. left ambulatory in no apparent distress. MPI Conclusion Myocardial perfusion was normal. There was no ischemia or evidence of prior infarction
[2025-10-26] MEDS: Regadenoson 0.4 MG/5 ML SYR IVP (11:23)
== END ==
LOC: DI 03:39
DX: R06.02 Shortness of breath (principal); R07.89 Other chest pain
CPT/HCPCS: 78452; 93016; 93018; 93017; J2785